=== PATIENT | male | born 1980 | race Caucasian/White ===

== ENCOUNTER 2021-09-09 03:47 | Emergency (ER) | payer OTHER ==
[~2021-09-09] VITALS: Ht 172.7 cm; Wt 101.0 kg
[2021-09-09] MEDS ORDERED: TRANEXAMIC ACID 1,000 MG/10 ML IV ONE (04:00)
[2021-09-09 04:30] LABS: HEMATOCRIT 47.7 % (42.0-52.0); HEMOGLOBIN 16.4 g/dL (14.0-18.0); MEAN CORPUSCULAR HEMOGLOBIN 31.2 pg (28.0-32.0); MEAN CORPUSCULAR VOLUME 90.8 fL (80.0-94.0); PLATELET 244 x1000/uL (130-400); RED BLOOD CELL COUNT 5.25 mill/uL (4.7-6.1)
[2021-09-09 04:44] LABS: CHLORIDE 105 mEq/L (98-107)
== END 2021-09-09 05:28 | disposition home or self-care (01) ==
LOC: ER 03:47
DX: L76.22 Postprocedural hemorrhage of skin and subcutaneous tissue following other procedure (principal); Z48.817 Encounter for surgical aftercare following surgery on the skin and subcutaneous tissue; Z98.890 Other specified postprocedural states
CPT/HCPCS: 36415; 80053; 85027; 86850; 86900; 96374; 99291